=== PATIENT | female | born 1945 | race Hispanic/Latino ===

== ENCOUNTER 2018-02-06 12:39 | Emergency (ER) | payer OTHER, MEDICARE ==
[~2018-02-06] VITALS: Ht 182.9 cm; Wt 77.1 kg
[~2018-02-06 12:39] MED LIST: ANTIVERT 25 MG25 MG PO; CIPRO 500MG (E500 MG PO; FLEXERIL10 MG PO; MOTRIN 600 MG600 MG PO; OMEPRAZOLE20 MG PO; PERCOCET 325 MG1 TA2 PO; TRAMADOL50 MG PO; VITAMIN D50000 IU PO
--- NOTE | 2018-02-06 17:08 | ED NECK/BACK PAIN COMPLAINT ---
History of Present Illness General Chief Complaint: Low Back Pain/Injury Stated Complaint: BACK PAIN RADIATES TO LEFT SIDE X1 WEEK Source: patient Exam Limitations: no limitations Vital Signs & Intake/Output Vital Signs & Intake/Output Vital Signs Date Time Temp Pulse Resp B/P B/P Pulse O2 O2 Flow FiO2 Mean Ox Delivery Rate 02/06 1859 97.0 60 16 145/67 97 Room Air 02/06 1833 Room Air 02/06 1656 97.1 51 16 148/85 99 Room Air 02/06 1252 97.1 60 15 97 Room Air Room Air Allergies Coded Allergies: No Known Allergies (02/06/18) Triage Note: PT TO ED FOR C/C OF L LOWER BACK PAIN THAT RADIATES INTO LUE. PT TOOK MOTRIN AND ANOTHER ANTIINFLAMMATORY WITHOUT RELIEF. Triage Nurses Notes Reviewed? yes Onset: Abrupt Duration: day(s):, week(s): (1), constant Timing: recent history Quality/Severity: moderate Location: LEFT LOW BACK Radiation: none Loss of Consciousness: no loss of consciousness HPI: 73-year-old female comes into emergency room with complaints of left lower back pain. Pain is sharp. It radiates down left leg and into her abdomen. Worse with certain movements. Sharp. Denies any chest pain shortness of breath fever chills vomiting or urinary symptoms. (Timo Carvajal) Reconcile Medications Cyclobenzaprine HCl 5 MG TABLET 1 TAB PO BID PRN MUSCLE SPASMS (Reported) Ibuprofen 800 MG TABLET 1 TAB PO PRN PAIN/INFLAMMATION (Reported) Methylprednisolone. (Medrol) 4 MG TAB.DS.PK 1 DP PO AD back pain 6 on day 1 then reduce by one tablet daily until gone (Lissa COSTA,Bala Wheeler) Past History Travel History Traveled to [place] past 21 day No Medical History Any Pertinent Medical History? 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 No (Timo Carvajal) Review of Systems Review of Systems Constitutional: Reports: no symptoms. Eyes: Reports: no symptoms. Ears, Nose, Throat, Mouth: Reports: no symptoms. Respiratory: Reports: no symptoms. Cardiovascular: Reports: no symptoms. Gastrointestinal/Abdominal: Reports: no symptoms. Musculoskeletal: Reports: see HPI. Skin: Reports: no symptoms. Neurological/Psychological: Reports: no symptoms. All Other Systems: Reviewed and Negative (Timo Carvajal) Physical Exam Physical Exam General Appearance: well developed/nourished, mild distress Head: atraumatic Eyes: Bilateral: normal appearance. Ears, Nose, Throat, Mouth: hearing grossly normal, moist mucous membrane Neck: normal inspection Respiratory: normal breath sounds, no respiratory distress Cardiovascular: regular rate/rhythm Gastrointestinal: soft, tenderness, Mild lower abdomen, no guarding, no rebound tenderness Back: normal inspection Extremities: normal range of motion Motor: Deficit L4 Right: No Deficit L4 Left: No Deficit L5 Right: No Deficit L5 Left: No Deficit S1 Right: No Deficit S1 Right: No Neurologic/Psych: awake, alert, oriented x 3, normal mood/affect Skin: intact, normal color, warm/dry Core Measures CVA/TIA Diagnosis: No (Timo Carvajal) Progress Differential Diagnosis: cauda equina syn, herniated disc, myofascial strain, pyelo/UTI, sciatica, spinal cord inj, ureterolithiasis Plan of Care: Orders Procedure Date/time Status URINALYSIS 02/06 172 Active LIPASE 02/06 172 Complete COMPREHENSIVE METABOLIC PANEL 02/06 172 Complete CBC WITHOUT DIFFERENTIAL 02/06 172 Complete Laboratory Tests 02/06/18 1755: Anion Gap 10, Estimated GFR > 60, BUN/Creatinine Ratio 28.8 H, Glucose 86, Calcium 9.9, Total Bilirubin 0.8, AST 25, ALT 30, Alkaline Phosphatase 65, Total Protein 7.5, Albumin 4.4, Globulin 3.1, Albumin/Globulin Ratio 1.4, Lipase 60, CBC w Diff NO MAN DIFF REQ, RBC 4.53, MCV 87.1, MCH 28.3, MCHC 32.5 L, RDW 14.3 , MPV 8.6, Gran % 44.0, Lymphocytes % 47.1, Monocytes % 7.3, Eosinophils % 1.4, Basophils % 0.2, Absolute Granulocytes 2.6, Absolute Lymphocytes 2.7, Absolute Monocytes 0.4, Absolute Eosinophils 0.1, Absolute Basophils 0 02/06/18 1747: Urine Color Pending, Urine Clarity Pending, Urine pH Pending, Ur Specific [place] Pending, Urine Protein Pending, Urine Ketones Pending, Urine Nitrite Pending, Urine Bilirubin Pending, Urine Urobilinogen Pending, Ur Leukocyte Esterase Pending, Ur Microscopic Pending, Urine Hemoglobin Pending, Urine Glucose Pending Diagnostic Imaging: Viewed by Me: CT Scan. Discussed w/RAD: CT Scan. Radiology Impression: PATIENT: KELLY MURRY PRESENT AGE: 73 PATIENT ACCOUNT NO: [id number] : 47 LOCATION: [facility] ORDERING PHYSICIAN: Timo GUALLPA SERVICE DATE: 02/06/18 EXAM TYPE : CAT - CT ABD & PELVIS W/O IV CONTRAS EXAMINATION: CT ABDOMEN AND PELVIS WITHOUT CONTRAST CLINICAL INFORMATION: Left flank pain COMPARISON: Prior CT January 2016 TECHNIQUE: Multidetector volumetric imaging was performed from the superior aspect of the liver through the pubic symphysis. Sagittal and coronal reformatted images were obtained on the technologist's workstation. DLP: 372 mGy -cm FINDINGS: LUNG BASES: The visualized lung bases are unremarkable. LIVER, GALLBLADDER, AND BILIARY TREE: The liver is normal in size, shape, and attenuation. No focal hepatic lesion or biliary ductal dilatation is present. The gallbladder is unremarkable with no evidence of radiopaque gallstones, gallbladder wall thickening, or obvious pericholecystic inflammatory changes. PANCREAS: Unremarkable. SPLEEN: Unremarkable. ADRENAL GLANDS: Unremarkable. KIDNEYS AND URETERS: The kidneys are normal in size, shape, and attenuation. No hydronephrosis, hydroureter, or calculi seen. No perinephric stranding. BLADDER: Unremarkable. GASTROINTESTINAL TRACT: The small and large bowel are unremarkable. The appendix is unremarkable. ABDOMINAL WALL: No significant hernia is appreciated. LYMPH NODES: Normal. VASCULAR: There is mild arterial calcification throughout PELVIC VISCERA: Unremarkable. OSSEOUS STRUCTURES: There is multilevel spondylosis of the lumbar sacral spine IMPRESSION: No urinary tract calculi or definite etiology for local reported left flank pain. Multilevel spondylosis of lumbar sacral spine. Mild calcific atherosclerotic disease DICTATED BY: Vini Santiago MD DATE/TIME DICTATED:02/06/181825 APPLICATION TESTER:HANK DATE/TIME TRANSCRIBED:02/06/18 182 CONFIDENTIAL, DO NOT COPY WITHOUT APPROPRIATE AUTHORIZATION. <Electronically signed in Other Vendor System> SIGNED BY: Vini Santiago MD 02/06/18 183 (Timo Carvajal) Departure Departure Disposition: HOME OR SELF CARE Condition: Stable Clinical Impression Primary Impression: Lumbar radiculopathy Referrals: Eula COSTA,Keagan Hood (PCP/Family) Additional Instructions: Take Medrol Dosepak as prescribed. Follow-up with your primary care doctor. Return if any concerns worsening symptoms. Please go over all results of today's visit with your primary care doctor. Contact your primary care doctor to let them know you were here in the emergency room. There may be nonspecific findings which may not be related to your visit today here in the emergency room but may require further evaluation and chronic monitoring by your primary care doctor. If you had a laceration today the chance of foreign body always remains. You should follow-up with your primary care doctor for recheck in 3-5 days for a wound check. If you had an x-ray done there is a chance that a fracture could have been missed on initial read and you should follow-up with your primary care doctor for repeat x-rays if symptoms persist. If your blood pressure was elevated here in the emergency room please have rechecked by [facility] primary care doctor within the next 48. If you were prescribed a narcotic here in the emergency room or any type of controlled substances you're not allowed to drive while taking this medication or operate any type of heavy machinery. Narcotics can make you feel lightheaded dizziness nausea and can cause constipation. You may need to case picker a stool softener. Thank you for choosing [facility] emergency room. Please return to the emergency room immediately if you have any other concerns worsening of symptoms. Departure Forms: Customer Survey General Discharge Information Prescriptions: Current Visit Scripts Methylprednisolone. (Medrol) 1 DP PO AD #1 DP 6 on day 1 then reduce by one tablet daily until gone Comments 02/06/18 Patient clinically looks well. Patient is in no apparent distress. Pain is most consistent with lumbar radiculopathy versus sciatica. No acute findings and CT scan. Patient seen by Dr. Alcaraz. Follow-up with PCP. Return if any concerns worsening symptoms. (Timo Carvajal) PA/COUNSELING AIDE Co-Sign Statement Statement: ED Attending supervision documentation- [x] I saw and evaluated the patient. I have also reviewed all the pertinent lab results and diagnostic results. I agree with the findings and the plan of care as documented in the PA's/COUNSELING AIDE's documentation. pt presents for eval of left flank pain radiating to lle. exam reveals mild left flank tenderness, worse with movement. [] I have reviewed the ED Record and agree with the PA's/COUNSELING AIDE's documentation. [] Additions or exceptions (if any) to the PAs/COUNSELING AIDE's note and plan are summarized below: [] (Lissa COSTA,Bala Wheeler)
[2018-02-06 18:21] LABS: ABSOLUTE BASOPHIL COUNT 0 /CUMM (0.0-0.2); ABSOLUTE EOSINOPHIL COUNT 0.1 /CUMM (0.0-0.7); ABSOLUTE GRANULOCYTE CT 2.6 /CUMM (1.4-6.5); ABSOLUTE LYMPH COUNT 2.7 /CUMM (1.2-3.4); ABSOLUTE MONOCYTE COUNT 0.4 /CUMM (0.10-0.60); BASOPHIL % 0.2 % (0.0-2.0); EOSINOPHIL % 1.4 % (0-5); HEMATOCRIT 39.5 % (37-47); MEAN CORPUSCULAR HGB 28.3 PG (27.0-31.0); MEAN CORPUSCULAR HGB CONC 32.5 G/DL (33.0-37.0); MEAN CORPUSCULAR VOLUME 87.1 FL (81.0-99.0); MEAN PLATELET VOLUME 8.6 FL (7.4-10.4); PLATELET COUNT 199 /CUMM (130-400); RBC DISTRIBUTION WIDTH 14.3 % (11.5-14.5); RED BLOOD CELL CT 4.53 /CUMM (4.20-5.40); WHITE BLOOD CELL COUNT 5.8 /CUMM (4.8-10.8)
--- NOTE | 2018-02-06 18:36 | CT SCAN REPORT ---
EXAMINATION: CT ABDOMEN AND PELVIS WITHOUT CONTRAST CLINICAL INFORMATION: Left flank pain COMPARISON: Prior CT January 2016 TECHNIQUE: Multidetector volumetric imaging was performed from the superior aspect of the liver through the pubic symphysis. Sagittal and coronal reformatted images were obtained on the technologist's workstation. DLP: 372 mGy-cm FINDINGS: LUNG BASES: The visualized lung bases are unremarkable. LIVER, GALLBLADDER, AND BILIARY TREE: The liver is normal in size, shape, and attenuation. No focal hepatic lesion or biliary ductal dilatation is present. The gallbladder is unremarkable with no evidence of radiopaque gallstones, gallbladder wall thickening, or obvious pericholecystic inflammatory changes. PANCREAS: Unremarkable. SPLEEN: Unremarkable. ADRENAL GLANDS: Unremarkable. KIDNEYS AND URETERS: The kidneys are normal in size, shape, and attenuation. No hydronephrosis, hydroureter, or calculi seen. No perinephric stranding. BLADDER: Unremarkable. GASTROINTESTINAL TRACT: The small and large bowel are unremarkable. The appendix is unremarkable. ABDOMINAL WALL: No significant hernia is appreciated. LYMPH NODES: Normal. VASCULAR: There is mild arterial calcification throughout PELVIC VISCERA: Unremarkable. OSSEOUS STRUCTURES: There is multilevel spondylosis of the lumbar sacral spine IMPRESSION: No urinary tract calculi or definite etiology for local reported left flank pain. Multilevel spondylosis of lumbar sacral spine. Mild calcific atherosclerotic disease
[2018-02-06] MEDS ORDERED: IBUPROFEN800 M1 PO (18:41)
[2018-02-06] MEDS ORDERED: CYCLOBENZAPRINE5 M2 PO (18:41)
[2018-02-06] MEDS ORDERED: MEDROL4 M2 PO (18:56)
[2018-02-06 18:59] VITALS: BP 145/67
== END 2018-02-06 19:42 ==
LOC: ERH 12:39
PROVIDERS: Physician Assistant Medical
DX: M54.16 Radiculopathy, lumbar region (principal)
CPT/HCPCS: 74176; 81001